=== PATIENT | male | born 1975 | race Caucasian/White ===

== ENCOUNTER 2016-12-05 19:53 | Emergency (ER) | payer SELFPAY ==
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
[2016-12-05 20:27] VITALS: BP 118/74
== END 2016-12-05 20:20 | disposition home or self-care (01) ==
LOC: ER 19:53
DX: S06.0X1A Concussion with loss of consciousness of 30 minutes or less, initial encounter (principal); S00.432A Contusion of left ear, initial encounter; Y08.89XA Assault by other specified means, initial encounter; Y93.9 Activity, unspecified; Y92.9 Unspecified place or not applicable